=== PATIENT | male | born 1955 | race Caucasian/White ===

== ENCOUNTER → 2021-05-27 | Day surgery (SDC) | payer OTHER ==
[~2021-05-27] MED LIST: CRESTOR5 MG PO; DIPHENHYDRAMINE25 MG PO; FENTANYL CITRATE/PF 100MCG/2 ML INJ ONE; HYOSCYAMINE SULFATE 0.5 MG/ML INJ ONE; IBUPROFEN200 MG PO; LIDOCAINE HCL 2% LOCAL INJ 5 ML SDV VIAL INJ ONE; MIDAZOLAM HCL 2 MG/2 ML VIAL ONE; PROPOFOL IV EMULSION 10 MG/ML 20 ML VIAL ONE
[2021-05-27 15:03] VITALS: BP 98/88
== END | disposition home or self-care (01) ==
LOC: OR 12:00
PROVIDERS: ATTEND Internal Medicine Gastroenterology
DX: K59.09 Other constipation (principal); K63.5 Polyp of colon; K64.8 Other hemorrhoids; K64.9 Unspecified hemorrhoids; E03.9 Hypothyroidism, unspecified; E78.00 Pure hypercholesterolemia, unspecified; Z01.810 Encounter for preprocedural cardiovascular examination; Z01.812 Encounter for preprocedural laboratory examination; Z20.822 Contact with and (suspected) exposure to COVID-19; Z79.899 Other long term (current) drug therapy; Z68.29 Body mass index [BMI] 29.0-29.9, adult
CPT/HCPCS: 45380; 93005; J1980; J2001; J2250; J2704; J3010; U0002; 45378

== ENCOUNTER 2023-12-14 15:08 | Emergency (ER) | payer MEDICARE ==
[~2023-12-14] VITALS: Ht 190.5 cm; Wt 99.8 kg
[~2023-12-14 15:08] MED LIST changes: -FENTANYL CITRATE/PF 100MCG/2 ML INJ ONE; -HYOSCYAMINE SULFATE 0.5 MG/ML INJ ONE; -LIDOCAINE HCL 2% LOCAL INJ 5 ML SDV VIAL INJ ONE; -MIDAZOLAM HCL 2 MG/2 ML VIAL ONE; -PROPOFOL IV EMULSION 10 MG/ML 20 ML VIAL ONE
[2023-12-14 15:37] VITALS: PULSE 64; RESP 15; TEMP 98.2; O2SAT 98
== END 2023-12-14 15:54 | disposition home or self-care (01) ==
LOC: ER 15:50
DX: R23.3 Spontaneous ecchymoses (principal)
CPT/HCPCS: 99282